=== PATIENT | female | born 1990 | race Caucasian/White ===

== ENCOUNTER 2016-05-16 15:02 | Emergency (ER) | payer MEDICAID ==
[~2016-05-16] VITALS: Wt 104.0 kg
[~2016-05-16 15:02] MED LIST: CIPR500T4 PO; HYDR-3498 PO; NAPR-260 PO
[2016-05-16] MEDS ORDERED: FAMOTIDINE 20 MG INJ IV STA (15:59)
[2016-05-16] MEDS ORDERED: METOCLOPRAMIDE 10 MG INJ IV STA (15:59)
[2016-05-16] MEDS ORDERED: ACETAMINOPHEN 500 MG TAB PO STA (15:59)
[2016-05-16 16:33] LABS: BASOPHILS % 0.4 % (0.0-2.0); EOSINOPHILS # 0.1 10^3/ul (0.0-0.5); EOSINOPHILS % 0.7 % (0.0-7.0); HEMATOCRIT 41.1 % (37.0-47.0); LYMPHOCYTES # 1.2 10^3/ul (0.8-2.9); LYMPHOCYTES % 11.2 % (15.0-51.0); MEAN CORPUSCULAR HEMOGLOBIN 29.7 pg (29.0-33.0); MEAN CORPUSCULAR HGB CONC 34.1 g/dl (32.0-37.0); MEAN PLATELET VOLUME 8.7 fl (7.4-10.4); MONOCYTE # 0.5 10^3/ul (0.3-0.9); MONOCYTES % 4.5 % (0.0-11.0); NEUTROPHILS % 83.2 % (39.0-77.0); PLATELET COUNT 255 10^3/UL (140-440); RED BLOOD COUNT 4.72 10^6/ul (4.20-5.40); RED CELL DISTRIBUTION WIDTH 13.9 % (11.5-14.5); UNCORRECTED WBC 10.9 10^3/ul (4.8-10.8); WHITE BLOOD COUNT 10.9 10^3/ul (4.8-10.8)
[2016-05-16 16:34] LABS: ADD UMIC NO; URINE BILIRUBIN (Dip) NEGATIVE (NEGATIVE); URINE BLOOD (Dip) NEGATIVE (NEGATIVE); URINE COLOR LT. YELLOW (YELLOW); URINE GLUCOSE (Dip) NEGATIVE (NEGATIVE); URINE KETONES (Dip) NEGATIVE (NEGATIVE); URINE LEUKOCYTE ESTERASE (Dip) NEGATIVE (NEGATIVE); URINE NITRITE (Dip) NEGATIVE (NEGATIVE); URINE TOTAL PROTEIN (Dip) NEGATIVE (NEGATIVE); URINE UROBILINOGEN (Dip) 0.2 E.U./dL (0.1-1.0)
[2016-05-16 16:35] LABS: CONDITION 1
[2016-05-16 16:44] LABS: ALBUMIN 4.3 g/dl (3.3-4.9); POTASSIUM 4.3 mmol/L (3.5-5.1)
[2016-05-16 16:46] LABS: BILIRUBIN,INDIRECT 0.1 mg/dl (0-1.1); BILIRUBIN,TOTAL 0.1 mg/dl (0.2-1.3); CREATININE 0.54 mg/dl (0.44-1.00)
[2016-05-16 16:47] LABS: ALBUMIN/GLOBULIN RATIO 0.93; CALCIUM 9.8 mg/dl (8.4-10.2); TOTAL PROTEIN 8.9 g/dl (6.1-8.1)
--- NOTE | 2016-05-16 16:48 | RADRPT ---
PROCEDURE: US OB. CLINICAL INDICATION: pain TECHNIQUE: Transabdominal views of the pelvis are available for review. COMPARISON: No prior studies are available for comparison. FINDINGS: There is a single intrauterine gestation with the crown-rump length measuring 2.5 cm, corresponding to a gestational age of 9 weeks and 2 days. The heart rate is noted at 179 bpm. The right ovary was not seen. The left ovary measures 2.1 x 1.2 cm. There is no free fluid. RPTAT: AA IMPRESSION: Single live intrauterine with an estimated gestational age of 9 weeks and 2 days, based on ultrasound measurements. .Baron Tracey MD, MD Date Time Electronically viewed and signed by .Baron Tracey MD, on 05/16/2016 16:48 .S/
--- NOTE | 2016-05-16 17:11 | ERD ---
ER Documentation Chief Complaint Date/Time DATE: 05/16/16 TIME: 17:09 Chief Complaint ABD PAIN, PT 8 WKS PG, NO VB HPI This 25-year-old female complains of nausea and epigastric pain for last 2 days. She is approximately 8 weeks by dates. She denies any lower abdominal pain, fevers, urinary complaints, vaginal bleeding. She has mild pain in her right upper quadrant but patient is status post cholecystectomy remotely. ROS All systems reviewed and are negative except as per history of present illness. Medications Home Meds Active Scripts Ciprofloxacin Hcl* (Ciprofloxacin Hcl*) 500 Mg Tablet, 500 MG PO BID for 3 Days , TAB Prov:CHI VIRK DO 02/10/15 Naproxen* (Naprosyn*) 500 Mg Tablet, 500 MG PO BID Y for PAIN AND/OR INFLAMMATION, #14 TAB Prov:MOOSECHI CASTRO DO 02/10/15 Hydrocodone Bit-Acetaminophen* ([place]*) 5-325 Mg Tab, 1 TAB PO Q6 Y for PAIN, # 10 TAB Prov:CHI VIRK DO 02/10/15 Allergies Allergies: Coded Allergies: No Known Allergy (Verified , NONE, 05/16/16) PMhx/Soc History of Surgery: Yes (GALLBLADDER REMOVAL ) Anesthesia Reaction: No Hx Neurological Disorder: No Hx Respiratory Disorders: No Hx Cardiac Disorders: No Hx Psychiatric Problems: No Hx Miscellaneous Medical Probl: No Hx Alcohol Use: No Hx Substance Use: No Hx Tobacco Use: No Smoking Status: Never smoker Physical Exam Vitals Vital Signs Date Time Temp Pulse Resp B/P Pulse Ox O2 Delivery O2 Flow Rate FiO2 05/16/16 15:14 98.9 80 18 145/96 99 Physical Exam Const: [] Alert, [id number]. Head: Atraumatic Eyes: Normal Conjunctiva ENT: Normal External Ears, Nose and Mouth. Neck: Full range of motion..~ No meningismus. Resp: Clear to auscultation bilaterally Cardio: Regular rate and rhythm, no murmurs Abd: Soft, mild tenderness primarily epigastric area. No rebound and no tenderness at McBurney's point no lower abdominal tenderness. non distended. Normal bowel sounds Skin: No petechiae or rashes Back: No midline or flank tenderness Ext: No cyanosis, or edema Neur: Awake and alert Psych: Normal Mood and Affect Result Diagram: 05/16/16 1621 05/16/16 1621 Results 24 hrs Laboratory Tests Test 05/16/16 16:21 Alanine Aminotransferase (ALT/SGPT) 21IU/L Albumin 4.3g/dl Albumin/Globulin Ratio 0.93 Alkaline Phosphatase 86IU/L Anion Gap 20 Aspartate Amino Transf (AST/SGOT) 20IU/L Basophils # 0.010^3/ul Basophils % 0.4% Blood Urea Nitrogen 9mg/dl Calcium Level 9.8mg/dl Carbon Dioxide Level 26mmol/L Chloride Level 101mmol/L Creatinine 0.54mg/dl Direct Bilirubin 0.00mg/dl Eosinophils # 0.110^3/ul Eosinophils % 0.7% Globulin 4.60g/dl Glucose Level 96mg/dl Hematocrit 41.1% Hemoglobin 14.0g/dl Indirect Bilirubin 0.1mg/dl Lipase 71U/L Lymphocytes # 1.210^3/ul Lymphocytes % 11.2% Mean Corpuscular Hemoglobin 29.7pg Mean Corpuscular Hemoglobin Concent 34.1g/dl Mean Corpuscular Volume 87.0fl Mean Platelet Volume 8.7fl Monocytes # 0.510^3/ul Monocytes % 4.5% Neutrophils # 9.010^3/ul Neutrophils % 83.2% Nucleated Red Blood Cells # 0.010^3/ul Nucleated Red Blood Cells % 0.0/100WBC Platelet Count 90751^3/UL Potassium Level 4.3mmol/L Red Blood Count 4.7210^6/ul Red Cell Distribution Width 13.9% Sodium Level 143mmol/L Total Bilirubin 0.1mg/dl Total Protein 8.9g/dl Urine Bilirubin NEGATIVE Urine Clarity CLEAR Urine Color LT. YELLOW Urine Glucose NEGATIVE% Urine Hemoglobin NEGATIVE Urine Ketones NEGATIVE Urine Leukocyte Esterase NEGATIVE Urine Nitrite NEGATIVE Urine Specific [place] 1.020 Urine Total Protein NEGATIVE Urine Urobilinogen 0.2 E.U./dL Urine pH 6.0 White Blood Count 10.910^3/ul Current Medications Medications (Trade) Dose Ordered Sig/[place] Route PRN Reason Start Time Stop Time Status Last Admin Dose Admin Metoclopramide HCl (Reglan) 10 mg ONCE STAT IV 05/16/16 15:59 05/16/16 16:02 DC 05/16/16 16:23 Famotidine (Pepcid Iv) 20 mg ONCE STAT IV 05/16/16 15:59 05/16/16 16:02 DC 05/16/16 16:23 Acetaminophen (Tylenol Tab) 500 mg ONCE STAT PO 05/16/16 15:59 05/16/16 16:02 DC 05/16/16 16:23 Procedures/MDM CBC and CMP and lipase showed no acute abnormalities. Urine is negative for infection, nitrites, glucose, blood. Pelvic ultrasound shows approximately 9 week normal-appearing intrauterine without evidence of adnexal , acute complications. Patient was given Reglan 10 mg IV, Tylenol 500 g by mouth and Pepcid 20 mg IV. Patient has nausea and epigastric pain of uncertain etiology, possibly gastritis or early gastroenteritis. She will be discharged home short course of Pepcid, Reglan and Tylenol instructions to follow-up with OB as scheduled this week. She should return for bleeding, fevers, vomiting, new worsening symptoms. The patient was stable with no new complaints during the ER course. Clinically, there is no current evidence to suggest meningitis, sepsis, acute abdomen, pneumonia, acute coronary syndrome, pulmonary embolism, or any other emergent condition appearing to require further evaluation or hospitalization. The patient should certainly return for any new or worsening symptoms per the aftercare instructions. They should otherwise follow-up with her primary care doctor for reevaluation this week. Departure Diagnosis: Primary Impression: Abdominal pain Abdominal location: epigastric Qualified Code: R10.13 - Epigastric pain Condition: Stable DELVIS BARRERA MD May 16, 2016 17:10
[2016-05-16] MEDS ORDERED: FAMO-18 PO (17:12)
[2016-05-16] MEDS ORDERED: METO10TA92 PO (17:12)
[2016-05-16] MEDS ORDERED: ACET500C5 PO (17:12)
[2016-05-16 17:26] VITALS: BP 129/70; PULSE 76; RESP 18; TEMP 98.1
== END 2016-05-16 17:27 | disposition home or self-care (01) ==
LOC: FTE 15:02
DX: O26.891 Other specified pregnancy related conditions, first trimester (principal); R10.13 Epigastric pain; Z3A.09 9 weeks gestation of pregnancy
CPT/HCPCS: 36415; 76801; 80053; 81003; 83690; 84702; 85025; 96374; 96375; J2765; Z7502; Z7610

== ENCOUNTER 2016-11-19 10:39 | Outpatient (CLI) | payer MEDICAID ==
[~2016-11-19] VITALS: Ht 157.5 cm; Wt 105.9 kg
[~2016-11-19 10:39] MED LIST changes: +ACET500C5 PO; +FAMO-96 PO; +METO10TA92 PO
[2016-11-19 11:01] VITALS: Ht 157.5 cm; Wt 105.9 kg
[2016-11-19] MEDS ORDERED: PRENAT PO (11:01)
[2016-11-19 11:10] VITALS: BP 114/64; PULSE 70; RESP 18
--- NOTE | 2016-11-19 11:37 | RADRPT ---
PROCEDURE: OB ultrasound for biophysical profile CLINICAL INDICATION: Cholestasis. TECHNIQUE: Multiple sonographic images of the pelvis were obtained. Transabdominal view of the gr avid uterus are available for review. The images were reviewed on a PACS workstation. COMPARISON: None FINDINGS: breathing movement = 2/2 tone = 2/2 motion = 2/2 Quantitative amniotic fluid volume = 2/2 ALEJANDRO = 15.2 cm Single live intrauterine with cardiac activity at 150 beats per minute. There is a anterior placenta without previa. IMPRESSION: 1. Single living intrauterine gestation in 75 position. 2. Biophysical profile = 8. 3. ALEJANDRO = 15.2 cm. RPTAT: [facility] Physician Toni Date Time Electronically viewed and signed by Petros Madison Physician on 11/19/2016 11:36 /
--- NOTE | 2016-11-19 12:09 | TRIAGE ---
OB Triage Datetime Report Generated by CPN: 11/19/2016 12:09 Datetime: 11/19/2016 11:30 Stage of : OB Triage Maternal Assessment Level of Consciousness: Fully Conscious Labor Evaluation Frequency: NONE Monitor Mode: External Resting Tone [place]: Relaxed Heart Rate FHR Baseline Rate: 145 Monitor Mode: External US Variability: Moderate 6-25 bpm Accelerations: 15X15 Decelerations: None Category: Category I Pain Assessment Pain Scale: 0 Pain Goal: 3 Vaginal Exam Membrane Status: Intact Vaginal Bleeding: None Datetime: 11/19/2016 11:06 Monitor Mode: External Monitor Mode: External US Datetime: 11/19/2016 10:57 Assessment Type: Triage Maternal Assessment Level of Consciousness: Fully Conscious DTR's/Clonus: DTRs 2+; No Clonus Headache: Denies Blurred Vision: No Respiratory Effort: Unlabored; Regular Rhythm; Equal Expansion Breath Sounds, Left: Clear and Equal Breath Sounds, Right: Clear and Equal Nausea/Vomiting: Denies RUQ Epigastric Pain: Denies Lower Extremities Edema: None Degree: None Upper Extremities Edema: None Degree: None Facial Edema: None Fall Risk Assessment History of Falling: (0) No Secondary Diagnosis: (0) No Ambulatory Aid: (0) Bedrest/Nurse Assist IV Therapy: (0) No Gait: (0) Normal/Bedrest/Immobile Mental Status: (0) Oriented to Own Ability Fall Score: 0 Fall Risk Score Definition: No Risk: No action required Datetime: 11/19/2016 10:56 Time of Arrival: 11/19/2016 10:34 EGA: 36.5 Arrived By: Ambulatory Arrived From: Office Chief Complaint: PT SENT FROM CLINIC FOR NST/BPP FOR CHOLESTASIS Movement: Present Contractions: Denies/Absent Rupture of Membranes: Denies Vaginal Bleeding: None Vaginal Discharge: Denies Recent Sexual Intercouse: Denies Abdominal Trauma: Not Applicable Patient Complaints: None Time Provider Notified: 11/19/2016 12:02 Provider Notified: LEA Initial Plan: NST/BPP
--- NOTE | 2016-11-19 15:33 | QN ---
Documentation Comment iup 36 weeks cholestatis vss exam wnl nst reactive a/p iup 36 weeks cholestatis of [facility] SANJU HILLS MD Nov 19, 2016 15:33
== END 2016-11-19 12:26 | disposition home or self-care (01) ==
LOC: OBT 10:39 → L-D 10:40 → OBT 12:26
PROVIDERS: ATTEND Obstetrics & Gynecology
DX: O26.613 Liver and biliary tract disorders in pregnancy, third trimester (principal); K83.1 Obstruction of bile duct; Z3A.36 36 weeks gestation of pregnancy
CPT/HCPCS: 76818; Z7500; G0463

== ENCOUNTER 2016-11-23 10:18 | Inpatient (IN) | payer MEDICAID ==
[~2016-11-23] VITALS: Ht 157.5 cm; Wt 104.5 kg
[~2016-11-23 10:18] MED LIST changes: -ACET500C5 PO; -CIPR500T4 PO; -FAMO-96 PO; -HYDR-3498 PO; -METO10TA92 PO; -NAPR-260 PO; +PRENAT PO
[2016-11-23 11:24] VITALS: BP 119/66; PULSE 89; RESP 20
[2016-11-23 11:27] VITALS: Ht 157.5 cm; Wt 104.5 kg
[2016-11-23] MEDS ORDERED: PREN-32 PO (11:35)
[2016-11-23] MEDS ORDERED: URSO300C3 PO (11:35)
[2016-11-23] MEDS ORDERED: CALC600T11 PO (11:35)
[2016-11-23] MEDS ORDERED: MISOPROSTOL 200 MCG TAB PR PRN (12:30)
[2016-11-23] MEDS ORDERED: DINOPROSTONE 10 MG VAG SUPP VAG ONE (12:30)
[2016-11-23] MEDS ORDERED: LIDOCAINE 1% (MPF) 30 ML INJ INJ PRN (12:30)
[2016-11-23] MEDS ORDERED: CARBOPROST 250 MCG INJ IM PRN (12:30)
[2016-11-23] MEDS ORDERED: BUTORPHANOL 2 MG INJ IV PRN ×2 (12:30)
[2016-11-23] MEDS ORDERED: IBUPROFEN 600 MG TAB PO PRN (12:30)
[2016-11-23] MEDS ORDERED: OXYTOCIN 30 UNITS/LR 500 ML IV SCH ×2 (12:30)
[2016-11-23] MEDS ORDERED: METHYLERGONOVINE 0.2 MG INJ IM PRN (12:30)
[2016-11-23] MEDS ORDERED: OXYTOCIN 30 UNITS/LR 500 ML IV PRN (12:30)
[2016-11-23] MEDS: LACTATED RINGER'S 1,000 ML IV SCH ×2 (12:44→16:54)
[2016-11-23 13:52] LABS: ADD SCAN DIFF NO
[2016-11-23 13:55] LABS: BASOPHIL # 0.1 10^3/ul (0.0-0.1); BASOPHILS % 0.6 % (0.0-2.0); EOSINOPHILS # 0.1 10^3/ul (0.0-0.5); EOSINOPHILS % 1.3 % (0.0-7.0); HEMATOCRIT 38.5 % (37.0-47.0); HEMOGLOBIN 13.2 g/dl (12.0-16.0); LYMPHOCYTES # 1.1 10^3/ul (0.8-2.9); MEAN CORPUSCULAR HEMOGLOBIN 30.1 pg (29.0-33.0); MEAN CORPUSCULAR HGB CONC 34.3 g/dl (32.0-37.0); MEAN CORPUSCULAR VOLUME 87.9 fl (82.0-101.0); MEAN PLATELET VOLUME 11.1 fl (7.4-10.4); MONOCYTE # 0.4 10^3/ul (0.3-0.9); MONOCYTES % 3.9 % (0.0-11.0); NEUTROPHIL # 8.4 10^3/ul (1.6-7.5); NEUTROPHILS % 82.8 % (39.0-77.0); PLATELET COUNT 197 10^3/UL (140-415); RED BLOOD COUNT 4.38 10^6/ul (4.20-5.40); RED CELL DISTRIBUTION WIDTH 13.2 % (11.5-14.5); WHITE BLOOD COUNT 10.1 10^3/ul (4.8-10.8)
[2016-11-23] MEDS ORDERED: LACTATED RINGER'S 1,000 ML IV PRN (14:00)
[2016-11-23 14:11] LABS: INR 0.88; PROTIME 11.9 Sec (12.2-14.2); PT RATIO 0.9
[2016-11-23 14:12] LABS: PARTIAL THROMBOPLASTIN TIME 28.7 Sec (25.0-35.0)
[2016-11-23] MEDS ORDERED: FENTAnyl 2MCG/ML-ROPIV 0.2% 100 ML ONE (16:18)
[2016-11-23] MEDS ORDERED: NALOXONE (0.4 MG/ML) INJ IV PRN (17:30)
[2016-11-23] MEDS ORDERED: ONDANSETRON 4 MG INJ IV PRN (17:30)
[2016-11-23] MEDS ORDERED: DIPHENHYDRAMINE 50 MG INJ IV PRN (17:30)
[2016-11-23] MEDS ORDERED: HYDROmorphONE 1 MG/ML SYG IV PRN ×2 (17:30)
--- NOTE | 2016-11-23 19:53 | HP ---
Date/Time of Note Date/Time of Note DATE: 11/23/16 TIME: 19:50 OB - History Hx of Present Free Text/Dictation Admitted for induction of labor because of elevated bile acids Last Menstrual Period: Mar 06, 2016 Estimated Due Date: Dec 12, 2016 : 3 Para: 2 Care: Good Care Ultrasounds: Normal mid trimester US Obstetrical Complications: None Medical Complications: Other Other Concerns: Elevated bile acids and cholestasis Past Family/Social History * Past Medical, Surgical, Family and Obstetric Histories reviewed from chart. Blood Type: O+ Rubella: immune RPR/VDRL: Negative GBS Status: Negative HBsAG: Negative OB Admission Exam Vital Signs Vital Signs Vital Signs Date Time Temp Pulse Resp B/P Pulse Ox O2 Delivery O2 Flow Rate FiO2 11/23/16 11:24 98.2 89 20 119/66 Room Air Physical Exam HEENT: WNL Heart: Rhythm Normal Lungs: Clear, Equal Abdomen: WNL Extremities: Normal Reflexes: Normal Cervical Dilatation: None Effacement: 0% Station: -3 Membranes: Intact Heart Rate: 130's Accelerations: Accelerations Present Decelerations: No Decelerations Varibility: Marked Contractions on Admission: None Last 72 hours Lab Results CBC & BMP 11/23/16 13:49 OB Assessment/Plan Reason for admission: induction of labor Other Assessment: Cholestasis at 37+ week Induction Method: per Misoprostol Protocol KESHA WEINSTEIN MD Nov 23, 2016 19:53
[2016-11-23] MEDS ORDERED: MINERAL OIL LIGHT 10 ML VIAL TOP PRN (21:00)
[2016-11-23] MEDS: FENTAnyl 2MCG/ML-ROPIV 0.2% 100 ML BAG EPI SCH (23:03)
[2016-11-24] MEDS: LACTATED RINGER'S 1,000 ML IV SCH ×4 (00:51→14:39)
[2016-11-24] MEDS: FENTAnyl 2MCG/ML-ROPIV 0.2% 100 ML BAG EPI SCH ×2 (05:20→12:12)
--- NOTE | 2016-11-24 18:05 | LDN ---
Date/Time of Note Date/Time of Note DATE: 11/24/16 TIME: 18:02 Delivery Summary of a viable over intact perineum Weeks of Gestation 37+ Placenta Delivered: Spontaneously, Intact & Complete Meconium: none Episiotomy: No Perineal laceration: 0 Anesthesia type: Epidural Estimated blood loss: 300 Sponge & Needle done & correct: Yes All needle counts correct: Yes Any foreign bodies felt in the: No Problems: Infant Delivery Information Sex Infant Sex: female Apgars 1 Minute: 9 5 Minute: 9 Suctioning Nose & mouth suctioned at yves: Yes Delee suction performed: Yes Umbilical Cord Umbilical cord with: 3 Vessels Cord presentations: no nuchal cord Cord Blood was obtained: Yes Mother & Baby Disposition Disposition Mom & Baby to Maternity; Good: Yes (mother and baby were recovered in good condition ) Mom transferred to: Other (maternity ) Baby to NICU: No KESHA WEINSTEIN MD Nov 24, 2016 18:04
[2016-11-24 21:00] VITALS: BP 134/64; PULSE 64; RESP 18
[2016-11-24] MEDS ORDERED: LACTATED RINGER'S 1,000 ML IV* SCH (21:21)
[2016-11-24] MEDS ORDERED: ACETAMINOPHEN/CODEINE #3 TAB PO PRN ×2 (21:30)
[2016-11-24] MEDS ORDERED: LANOLIN 7 GM TUBE TOP PRN (21:30)
[2016-11-24] MEDS ORDERED: OXYTOCIN 30 UNITS/LR 500 ML IV PRN (21:30)
[2016-11-24] MEDS ORDERED: MISOPROSTOL 200 MCG TAB PR PRN (21:30)
[2016-11-24] MEDS ORDERED: DIBUCAINE 1% 30 GM OINT PR PRN (21:30)
[2016-11-24] MEDS ORDERED: WITCH HAZEL/GLYCERIN PAD PR PRN (21:30)
[2016-11-24] MEDS ORDERED: BENZOCAINE 20% 56 ML SPRAY TOP PRN (21:30)
[2016-11-24] MEDS ORDERED: METHYLERGONOVINE 0.2 MG INJ IM PRN (21:30)
[2016-11-24] MEDS ORDERED: ZOLPIDEM 5 MG TAB PO PRN (21:30)
[2016-11-24] MEDS ORDERED: CARBOPROST 250 MCG INJ IM PRN (21:30)
[2016-11-24] MEDS: MAGNESIUM HYDROXIDE 30ML CUP PO SCH (21:48)
[2016-11-24] MEDS: SENNA/DOCUSATE NA (8.6MG/50MG) TAB PO SCH (21:49)
[2016-11-24] MEDS: IBUPROFEN 600 MG TAB PO SCH (23:38)
[2016-11-24] MEDS: CEPHALEXIN 500 MG CAP PO SCH (23:38)
[2016-11-25] VITALS: BP 118/62; PULSE 84; RESP 20
[2016-11-25 04:00] VITALS: BP 131/72; PULSE 72; RESP 18
[2016-11-25] MEDS: CEPHALEXIN 500 MG CAP PO SCH ×4 (05:37→23:44)
[2016-11-25] MEDS: IBUPROFEN 600 MG TAB PO SCH ×4 (05:37→23:44)
[2016-11-25 08:00] VITALS: BP 103/51; PULSE 68; RESP 18
[2016-11-25 08:29] LABS: ADD SCAN DIFF NO
[2016-11-25 08:37] LABS: BASOPHILS % 0.2 % (0.0-2.0); EOSINOPHILS # 0.2 10^3/ul (0.0-0.5); EOSINOPHILS % 1.1 % (0.0-7.0); HEMATOCRIT 32.7 % (37.0-47.0); LYMPHOCYTES # 1.6 10^3/ul (0.8-2.9); LYMPHOCYTES % 11.5 % (15.0-51.0); MEAN CORPUSCULAR HEMOGLOBIN 29.2 pg (29.0-33.0); MEAN CORPUSCULAR HGB CONC 33.6 g/dl (32.0-37.0); MEAN CORPUSCULAR VOLUME 86.7 fl (82.0-101.0); MEAN PLATELET VOLUME 11.2 fl (7.4-10.4); MONOCYTE # 0.8 10^3/ul (0.3-0.9); NEUTROPHIL # 11.3 10^3/ul (1.6-7.5); NEUTROPHILS % 80.8 % (39.0-77.0); PLATELET COUNT 177 10^3/UL (140-415); RED BLOOD COUNT 3.77 10^6/ul (4.20-5.40); RED CELL DISTRIBUTION WIDTH 13.4 % (11.5-14.5); WHITE BLOOD COUNT 13.9 10^3/ul (4.8-10.8)
[2016-11-25] MEDS: MAGNESIUM HYDROXIDE 30ML CUP PO SCH ×2 (08:40→20:41)
[2016-11-25] MEDS: SENNA/DOCUSATE NA (8.6MG/50MG) TAB PO SCH ×2 (08:41→20:41)
--- NOTE | 2016-11-25 14:49 | DS ---
Date/Time of Note Date/Time of Note Home next day DATE: 11/25/16 TIME: 14:48 Obstetrical Discharge Record Final Diagnosis Final Diagnosis: Term delivered Other Final Diagnosis Status post vaginal delivery Vaginal Delivery Obstetrical Delivery: Spontaneous Condition on Discharge Physical Assessment Last Vitals: See nurse's notes Voiding: Yes Bowel Movement: Yes Breast: Soft, non-tender, Filling Fundus: Firm Abdomen and Incision: Soft Episiotomy: Not applicable Calf Tenderness: No Patient Condition: Good KESHA WEINSTEIN MD Nov 25, 2016 14:49
[2016-11-25 16:00] VITALS: BP 96/68; PULSE 70; RESP 18
[2016-11-25 20:00] VITALS: BP 112/69; PULSE 76; RESP 20
[2016-11-26 04:00] VITALS: BP 97/54; PULSE 62; RESP 19
[2016-11-26] MEDS: CEPHALEXIN 500 MG CAP PO SCH ×3 (05:36→17:40)
[2016-11-26] MEDS: IBUPROFEN 600 MG TAB PO SCH ×3 (05:37→17:40)
[2016-11-26] MEDS ORDERED: DIPHTH/TET/ACEL PERTUSS (ADULT) 0.5 ML VIAL IM* ONE (09:00)
[2016-11-26] MEDS ORDERED: MEASLES,MUMPS,RUBELLA VACCINE INJ SC* ONE (09:00)
[2016-11-26] MEDS ORDERED: VARICELLA VACCINE LIVE/PF 1,350 UNIT/0.5 ML ML SC* ONE (09:00)
[2016-11-26] MEDS: MAGNESIUM HYDROXIDE 30ML CUP PO SCH (09:35)
[2016-11-26] MEDS: SENNA/DOCUSATE NA (8.6MG/50MG) TAB PO SCH (09:35)
[2016-11-26 09:43] VITALS: BP 110/58; PULSE 66; RESP 20
[2016-11-26 15:31] VITALS: BP 134/69; PULSE 70; RESP 20
--- NOTE | 2016-11-26 17:37 | PD.PPDC ---
PREDATORY HUNTER Discharge Instruction Provider Information Physician Information 26 y/o female had vaginal delivery Diagnosis Final Diagnosis: S/P vaginal delivery Condition Patient Condition: Good Diet Diet: Resume Regular Diet Activity/Restrictions Activity: Normal Activity May Shower Restrictions: Nothing in the Vagina Return to Work or School: Jan 10, 2017 Follow-up Follow-up with Physician: 4, Week/Weeks (in clinic ) Return to clinic for OB Instructions: Breast Tenderness Depression KESHA WEINSTEIN MD Nov 26, 2016 17:37
[2016-11-26] MEDS ORDERED: IBUP-1542 PO (17:38)
== END 2016-11-26 21:25 | disposition home or self-care (01) | DRG 775 ==
LOC: L-D 10:18 → PP1 11-24 21:02 → EDSTATUS 12-12 10:17
PROVIDERS: ADMIT Obstetrics & Gynecology; ATTEND Obstetrics & Gynecology
PROC: 10E0XZZ Delivery of Products of Conception, External Approach (ICD-10-PCS; principal; 2016-11-24)
DX: O80 Encounter for full-term uncomplicated delivery (principal); Z37.0 Single live birth; Z3A.37 37 weeks gestation of pregnancy
CPT/HCPCS: 62319; 85025; 85610; 85730; 86592; 86900; 86901; 87340; 90715; 90716; J2405; J2590; J3010; J7120

== ENCOUNTER 2017-07-08 08:28 | Emergency (ER) | END 2017-07-08 09:59 | disposition home or self-care (01) ==

== ENCOUNTER 2018-02-17 08:27 | Emergency (ER) | END 2018-02-17 10:40 | disposition home or self-care (01) ==

== ENCOUNTER 2018-03-04 20:08 | Emergency (ER) | END 2018-03-04 22:14 | disposition home or self-care (01) ==